=== PATIENT | male | born 1965 | race Caucasian/White ===

== ENCOUNTER 2019-03-01 10:04 | Emergency (ER) | payer MEDICAID ==
[~2019-03-01] VITALS: Ht 170.2 cm; Wt 73.0 kg
[2019-03-01 11:13] VITALS: BP 119/69
== END 2019-03-01 11:16 | disposition home or self-care (01) ==
LOC: ER 10:04
DX: L03.012 Cellulitis of left finger (principal); F17.290 Nicotine dependence, other tobacco product, uncomplicated; F12.10 Cannabis abuse, uncomplicated; Z88.0 Allergy status to penicillin
CPT/HCPCS: 99283

== ENCOUNTER 2020-01-22 09:46 | Emergency (ER) | payer MEDICAID ==
[~2020-01-22] VITALS: Ht 170.2 cm; Wt 74.0 kg
[2020-01-22 09:58] VITALS: BP 136/95
[2020-01-22] MEDS ORDERED: IBUPROFEN 600MG TABLET PO ONE (11:00)
[2020-01-22] MEDS ORDERED: HYDROCODONE/ACETAMINOPHEN 5/325MG TABLET PO ONE (11:00)
[2020-01-22] MEDS ORDERED: TETANUS, DIPHTHERIA, PERTUSSIS VAC/PF 0.5ML (>7YR OLD) IM ONE (11:30)
== END 2020-01-22 11:40 | disposition home or self-care (01) ==
LOC: ER 09:46
DX: M25.552 Pain in left hip (principal); F12.10 Cannabis abuse, uncomplicated; Z98.890 Other specified postprocedural states
CPT/HCPCS: 73502; 90471; 90715; 99283

== ENCOUNTER 2020-01-30 09:44 | Emergency (ER) | payer MEDICAID ==
[~2020-01-30] VITALS: Ht 170.2 cm; Wt 74.0 kg
[2020-01-30 09:47] VITALS: BP 142/91
[2020-01-30] MEDS ORDERED: IBUPROFEN 600MG TABLET PO ONE (10:15)
== END 2020-01-30 10:31 | disposition home or self-care (01) ==
LOC: ER 09:44
DX: M54.30 Sciatica, unspecified side (principal); F12.10 Cannabis abuse, uncomplicated; Z88.0 Allergy status to penicillin
CPT/HCPCS: 99282

== ENCOUNTER 2024-08-21 10:52 | Emergency (ER) | payer MEDICAID ==
[~2024-08-21] VITALS: Ht 170.2 cm; Wt 74.1 kg
[2024-08-21 11:02] VITALS: O2SAT 99
[2024-08-21] MEDS ORDERED: LIDO-53 TP (11:17)
[2024-08-21] MEDS ORDERED: METH4TAB95 MT (11:17)
[2024-08-21] MEDS: LIDOCAINE 5% PATCH TOP SCH (11:35)
[2024-08-21 11:36] VITALS: BP 128/72; PULSE 89; RESP 18; TEMP 36.7; O2SAT 99
[2024-08-21] MEDS: KETOROLAC 15MG/ML VIAL IM ONE (11:36)
== END 2024-08-21 11:37 | disposition home or self-care (01) ==
LOC: ER 11:12
DX: M54.40 Lumbago with sciatica, unspecified side (principal); F12.90 Cannabis use, unspecified, uncomplicated; Z79.899 Other long term (current) drug therapy; Z88.0 Allergy status to penicillin
CPT/HCPCS: 96372; 99283; J1885; Z7610